=== PATIENT | female | born 1975 | race Two or more races ===

== ENCOUNTER 2016-06-08 19:08 | Emergency (ER) | payer BC ==
[~2016-06-08] VITALS: Ht 170.2 cm; Wt 81.6 kg
[~2016-06-08 19:08] MED LIST: AMOXICILLIN500 MG ORAL; HYDROCODON-ACE1 EA15 ORAL
[2016-06-08 19:30] VITALS: BP 115/81
--- NOTE | 2016-06-08 19:43 | Emergency Room Report ---
History of Present Illness General Chief Complaint: Upper Extremity Injury Source: Patient (Key Marcial) Present Illness HPI 40-year-old female presents to emergency Department complaining of 10 out of 10 in severity right middle finger pain since last night. Patient states she was playing tug-of-war with her and he ripped the blanket quickly from her hands and she had onset of pain. Patient reports swelling noted upon wakening this morning. Patient denies previous injury or cuts or infections nearby. Patient states she took Advil prior to arrival.Denies numbness tingling or loss of sensation or gross motor movements of the extremities, incontinence of bowel or bladder. Denies CP, Palpitations, LOC, AMS, dizziness, Changes in Vision, Sensation, paresthesias, or a sudden severe headache. (Key Marcial) Allergies: Coded Allergies: NO KNOWN ALLERGIES (Unverified Allergy, Unknown, 04/13/15) Patient History Past Medical History: see triage record Past Surgical History: none Pertinent Family History: none Last Menstrual Period: 05/19/16 Now: No Immunizations: UTD Reviewed Nursing Documentation: PMH: Agreed, PSxH: Agreed (Key Marcial) Nursing Documentation-PMH Past Medical History: No Stated History (Key Marcial) Review of Systems All Other Systems: negative except mentioned in HPI (Key Marcial) Physical Exam Vital Signs Date Time Temp Pulse Resp B/P Pulse Ox O2 Delivery O2 Flow Rate FiO2 06/08/16 19:23 98.4 61 16 115/81 100 Room Air Sp02 EP Interpretation: reviewed, normal General Appearance: no apparent distress, alert, GCS 15, non-toxic Head: normocephalic, atraumatic Eyes: bilateral eye PERRL, bilateral eye normal inspection ENT: hearing grossly normal, normal pharynx, no angioedema, normal voice Neck: full range of motion, supple/symm/no masses Respiratory: lungs clear, normal breath sounds, speaking full sentences Cardiovascular #1: regular rate, rhythm, no edema Musculoskeletal: back normal, gait/station normal, normal range of motion, other - erythema, swelling and TTP right middle finger between PIP and DIP joint. no increased temperature to palpation, no lesions, no bruising. , tender - right middle finger between PIP and DIP joint. Neurologic: alert, oriented x3, responsive, motor strength/tone normal, sensory intact, speech normal Psychiatric: judgement/insight normal, memory normal, mood/affect normal, no suicidal/homicidal ideation Skin: normal color, no rash, warm/dry, well hydrated Lymphatic: no adenopathy (Key Marcial) Medical Decision Making PA Attestation Dr. Holt is my supervising Physician whom patient management has been discussed with. (Key Marcial) Diagnostic Impression: Primary Impression: Finger fracture, right Qualified Codes: S62.609A - Fracture of unspecified phalanx of unspecified finger, initial encounter for closed fracture ER Course Pt. presents to the ED c/o right middle finger pain since yesterday. s/p playing tug-o-war with . Ddx considered but are not limited to Fracture, dislocation, contusion, Sprain/ Strain/Spasm, Epidural abscess, Neoplastic mets. Vital signs: are WNL, pt. is afebrile H&PE are most consistent with musculoskeletal injury will r/o fx with imaging. ORDERS: - X-ray Right Hand 3 views - POSITIVE FOR fx of the phalanx of the third finger proximal to the DIP, negative for Dislocation, or significant soft tissue injury, per preliminary read in ED by Dr. Holt ED INTERVENTIONS: - Hester PO -finger Splint applied by corn lab technician. Pt. remains neurovascularly intact. DISCHARGE: At this time pt. is stable for d/c to home. Will provide printed patient care instructions, and any necessary prescriptions. Care plan and follow up instructions have been discussed with the patient prior to discharge. (Key Marcial) ER Course Scribe documentation reviewed by me and is accurate. (Bryn Holt M.D.) Last Vital Signs Date Time Temp Pulse Resp B/P Pulse Ox O2 Delivery O2 Flow Rate FiO2 06/08/16 19:23 98.4 61 16 115/81 100 Room Air (Key Marcial) Disposition: HOME, SELF-CARE Condition: Stable Scripts Hydrocodone Bit/Acetaminophen 5-325* (NORCO 5-325*) 1 Each Tablet 1 TAB ORAL Q6H Y for For Pain, #10 TAB 0 Refills Prov: Key Marcial 06/08/16 Ibuprofen* (MOTRIN*) 600 Mg Tablet 600 MG ORAL THREE TIMES A DAY, #30 TAB 0 Refills Prov: Key Marcial 06/08/16 Patient Instructions: Finger Fracture, [id number] Additional Instructions: Take medications as directed. Follow up with PCP/ lawyer [employer] estate in 3-5 days Return sooner to ED if new symptoms occur, or current symptoms become worse. Do not drink alcohol, drive, or operate heavy machinery while taking Hester as this may cause drowsiness. - Please note that this Emergency Department Report was dictated using [employer] assembler technology software, occasionally this can lead to erroneous entry secondary to interpretation by the dictation equipment. Key Marcial Jun 08, 2016 19:43 Bryn Holt M.D. Jun 10, 2016 22:05
[2016-06-08] MEDS ORDERED: NORCO 5-325 TA1 EACH ORAL (21:00)
[2016-06-08] MEDS ORDERED: IBUPROFEN600 MG ORAL (21:00)
[2016-06-08] MEDS ORDERED: Norco 5mg/325mg tab ORAL ONE (21:00)
[2016-06-08 21:25] VITALS: BP 119/79
[2016-06-08 21:30] VITALS: BP 119/79
--- NOTE | 2016-06-09 11:57 | Diagnostic Imaging Report ---
Indication: PAIN Technique: 3 views right hand Comparison: none Findings: There is a nondisplaced comminuted fracture of the third middle phalanx. No other acute fractures. No dislocations. The joint spaces are preserved. Impression: Positive for nondisplaced third middle phalangeal fracture This agrees with the preliminary interpretation provided by the emergency room physician
== END 2016-06-08 21:30 | disposition home or self-care (01) ==
LOC: EMR 19:51
DX: S62.609A Fracture of unspecified phalanx of unspecified finger, initial encounter for closed fracture (principal); X58.XXXA Exposure to other specified factors, initial encounter; Y93.9 Activity, unspecified; Y92.9 Unspecified place or not applicable
CPT/HCPCS: 99284